=== PATIENT | male | born 1945 | race Caucasian/White ===

== ENCOUNTER 2016-07-24 06:13 | Day surgery (SDC) | payer MEDICARE ==
[~2016-07-24] VITALS: Ht 170.2 cm; Wt 72.0 kg
[~2016-07-24 06:13] MED LIST: AMOX500C2 PO; ASPI-973 PO; ASPI325T32 PO; CELE200C PO; LISI40TA PO; Lactated Ringer's 1,000 ML IV ONE
[2016-07-24] MEDS ORDERED: Dexamethasone 4 mg/mL Inj ONE (06:14)
[2016-07-24] MEDS ORDERED: Propofol 10,000 mCg/mL 20 mL Inj ONE (06:14)
[2016-07-24 06:47] VITALS: BP 138/66; PULSE 60; RESP 14; O2SAT 95
[2016-07-24] MEDS ORDERED: HYDROcodone-APAP 5-325 mg Tablet PO PRN (07:25)
[2016-07-24] MEDS ORDERED: Lidocaine 1%-Epi 1:100,000 20 mL Inj INFILTRATE ONE (08:11)
[2016-07-24] MEDS ORDERED: Lactated Ringer's 500 ML IV PRN (08:15)
[2016-07-24] MEDS ORDERED: Phenylephrine 10,000 mCg/mL Inj IVPUSH PRN (08:15)
[2016-07-24] MEDS ORDERED: Dexamethasone 4 mg/mL Inj IVPUSH PRN (08:15)
[2016-07-24] MEDS ORDERED: Lactated Ringer's 1,000 ML IV SCH (08:15)
[2016-07-24] MEDS ORDERED: EPHEDrine Sulfate 50 mg/mL Inj IVPUSH PRN (08:15)
[2016-07-24] MEDS ORDERED: fentaNYL-PF 50 mCg/mL 2 mL Inj IVPUSH PRN (08:15)
[2016-07-24] MEDS ORDERED: HYDROmorphone 1 mg/mL Inj IVPUSH PRN (08:15)
[2016-07-24] MEDS ORDERED: Atropine 0.4 mg/mL Inj IVPUSH PRN (08:15)
[2016-07-24] MEDS ORDERED: Ondansetron 2 mg/mL 2 mL Inj IVPUSH PRN (08:15)
[2016-07-24] MEDS ORDERED: Labetalol 5 mg/mL 4 mL Inj IV PRN (08:15)
[2016-07-24] MEDS ORDERED: MetoCLOpramide 5 mg/mL 2 mL Inj IVPUSH PRN (08:15)
--- NOTE | 2016-07-24 08:15 | PCM.HPANE ---
Patient Data Date of Service: Jul 24, 2016 Surgeon Admitting Provider: Attending Provider:Wolfgang Man DO Primary Care Physician:Will Miller MD Other Provider:Rivka Delgado Anesthesia Reason for Visit Left Carpal Tunnel Syndrome Ht/WT & BMI Height (Feet): 5 Height (Inches): 7.00 Weight (Kilograms): 72.000 Body Mass Index 24.00 Allergies Coded Allergies: Cephalosporins (Verified Allergy, Unknown, RASH, 07/24/16) RE-ENTERED CODED ALLERGY povidone (Verified Adverse Reaction, Severe, SKIN IRRITATION, 07/21/16) Uncoded Allergies: CEPHALOSPORIN (Allergy, Severe, RASH, 08/13/13) Past Anesthesia History Anesthesia History: Denies:: Anesthesia Reactions, Fam Malignant Hypertherm, Malignant Hyperthermia Diabetes History Hx Diabetes?: No MRSA MRSA: No Medications Blood Thinner: Aspirin Hypertension Medication: Yes (LISINOPRIL) Home Meds Incl Beta Ramona: No Reported Medications Lisinopril 40 Mg [id number] Mg PO BID 30 Days Ref 0 07/21/16 Celecoxib (Celebrex)200 Mg [id number] Mg PO DAILY PRN prn #30 CAPSULE Ref 0 07/21/16 Aspirin 325 Mg [id number] Mg PO DAILY #1 BOTTLE 07/21/16 Aspirin 81 Mg [id number] Mg PO DAILY Ref 0 07/21/16 Amoxicillin 500 Mg Capsule2,000 Mg PO 1 HR PRIOR TO DENTAL Ref 0 09/13/15 Discontinued Reported Medications Mesalamine W/Cleansing Wipes (Mesalamine 4 gm/60 ml Kit)4 Gm/60 Ml Kit4 Gm RC HS Ref 0 09/13/15 PredniSONE-Expunged Drug, Do Not Renew! 5 Mg Tab3 Tab PO DAILYWM THEN DECREASE TO 1-2 DEPENDING ON SYMPTOMS 08/11/13 Omeprazole-Expunged Drug, Do Not Renew! 20 Mg Capsule.dr1-2 Tab PO NEEDED Ref 0 08/11/13 Aspirin-Expunged Drug, Do Not Renew! 325 Mg Tablet1 Tab PO DAILY 08/11/13 Lisinopril-Expunged Drug, Do Not Renew! 40 Mg Tablet1 Tab PO BID 08/11/13 History History of ENT Problems?: Yes HEENT History: Positive for:: Cataracts Hx of Heart Problems?: Yes Cardiovascular History: Positive for:: Hypertension Denies:: AICD Heart Murmur Irregular Heartbeat Pacemaker Rheumatic Fever Thrombophlebitis Valvular Heart Disease Hx of Respiratory Problem?: Yes Respiratory History: Denies:: Oxygen Administration Use of C-PAP Machine (SNORES) Hx Neurologic Problems?: Yes Other Neurological Pertinent: HX OF POLYMYALGIA RHEUMATICA Hx of GI Problems?: Yes Gastrointestinal History: Positive for:: Heartburn Other GI Pertinent History: C/OF INTERMITTANT DIARRHEA S/P LT INGUINAL HERNIA RPR Hx of Problems?: No Male Hx: Denies:: Prostate Problems Scrotal Mass Testicular Surgery Skin History: Positive for:: History Skin Disorders? (S/P EXC BASAL CELL CA ON BACK,MELANOMA EXC RT CHEST WALL) Hx Musculoskeletal Problems?: Yes Musculoskeletal History: Positive for:: Degenerative Joint Joint Replacement (S/P RT MARY W/ REVISIONS X5,LT MARY) Hx of Psycho/Social Problems?: No Hx Surgeries?: Yes (RT MARY W/ REVISIONS X5,L TOTAL HIP, EXC RT CHEST WALL MALIG. MELANOMA,BCC E) Hx Any Other Health Problems?: Yes Other History: Positive for:: Cancer (R CHEST WALL MALIGNANT MELANOMA,EXC BASAL CELL CA ON BACK) Hospitalization Denies:: Endocrine Disease Thyroid Disease History Blood Transfusions: Denies:: Blood Transfusions Hx Diabetes: No Other Pertinent History: S/P RT AXILLARY NODE DISSECTION Hx Alcohol Use: YesAlcoholic Drinks Per Day: 1-2/WEEKHx Substance Use: No Smoking Status: Never Smoker Have You Smoked inLast 12 mo: No Stop/Bang Treated for Sleep Apnea?: No Do You Have a CPAP Machine?: No S-Snoring: Do You Snore Loudly: Yes T-Tired: feel tired, fatigued: No O-Obsered: Observed not breath: No P-Blood Pressure: treated: Yes B- Body Mass Index > 35 kg/m2: No A- Age over 50: Yes N- Neck Large Circumference: No G- Gender Male: Yes CELY Total Score: 4 CELY Risk Assessment: Low Risk, <3 Yes Risk Assessment Category Category 1A: Patient has history of documented sleep apnea, and HAS NOT received any narcotic, sedative or anesthesia administration during this stay. Category 1B: Patient has history of documented sleep apnea, and HAS received any narcotic , sedative or anesthesia administration during this stay Category 2: Patient has SUSPECTED Obstructive Sleep Apnea, and HAS received any narcotic , sedative or anesthesia administration during this stay. Category 3: Patient has SUSPECTED Obstructive Sleep Apnea and HAS NOT received narcotic, sedative or anesthesia administration during this stay. Category 4: Outpatient in Procedural Areas with known sleep apnea or who screen positive for High Risk via the STOP/BANG questionnaire. Exam Exam Vital Signs Vital Signs Date Time Temp Pulse Resp B/P Pulse Ox O2 Delivery O2 Flow Rate FiO2 07/24/16 06:47 36.3 60 14 138/66 95 Room Air General Appearance: Oriented X3, Cooperative, No Acute Distress HEENT/AIRWAY: MP 1 Lungs: Clear to Auscultation, Normal Air Movement Heart: Exam Unremarkable, Normal S1, Normal S2 Meds/Labs/Diagnostics Admission Meds Current Medications Lactated Ringer's (Lr) 1,000 ml @ 120 mls/hr [id number] ONCE IV Last administered on 07/24/16t 07:08; Start 07/24/16 at 05:00; Stop 07/24/16 at 13:19 Plan Impression Patient chart reviewed, patient interviewed and anesthestic plan with risks, benefits, and alternatives discussed, and informed consent obtained. NPO Status: 07/24/16 WATER 0400 ASA Physical Status: ASA2 Mod Systemic Disease Anesthetic Plan: MAC, Regional Block Bene/Risks/Altern/Consents: Yes HP Complete Prior to Induction: Yes Vazquez Hansen DO Jul 24, 2016 08:15
--- NOTE | 2016-07-24 08:49 | PCM.ANEP1 ---
Post Anesthesia Phase 1 PACU Phase 1 Assessment Date of Service: Jul 24, 2016 Vital Signs Vital Signs Date Time Temp Pulse Resp B/P Pulse Ox O2 Delivery O2 Flow Rate FiO2 07/24/16 06:47 36.3 60 14 138/66 95 Room Air Anesthetic Administered: MAC, Regional Block (SAMM) Level of Alertness: Awake, talking FLOREZ's with Equal Strength: Yes Pain: No Nausea or Vomiting: No Oxygen Delivery: Room Air Lungs: Clear to Auscultation, Normal Air Movement Dermatome Level: Full Sensation (Anesthetic limb c/w Samm block) Vazquez Hansen DO Jul 24, 2016 08:49
[2016-07-24 09:30] VITALS: BP 133/64; PULSE 63; RESP 14; O2SAT 96
--- NOTE | 2016-07-24 10:01 | OP ---
[address] [address] OPERATIVE REPORT PATIENT: ANITA MC : 1945 MR#: [id number] ADMIT: 07/24/2016 JOB ID: [id number] DATE OF SURGERY: 07/24/2016 PREOPERATIVE DIAGNOSIS(ES): Left carpal tunnel syndrome. POSTOPERATIVE DIAGNOSIS(ES): Left carpal tunnel syndrome. PROCEDURE: Left open carpal tunnel release. SURGEON: Wolfgang Man DO ANESTHESIA: [place] block. HISTORY: The patient is a pleasant, 71-year-old male, with a longstanding history of bilateral hand pain and paresthesias. He underwent a right open carpal tunnel release several months ago, and was undergoing conservative treatment for his left hand. His symptoms progressively worsened despite utilization of nighttime braces, and we discussed proceeding with a left open carpal tunnel release. He understood the risks include, but not limited to, neurovascular injury, tendon injury, infection, failure to resolve the patient's preoperative symptoms, stiffness, persistent pain which may require further intervention. The patient had all questions answered. Consent was signed and placed in the chart. PROCEDURE IN DETAIL: The patient was brought to the operating suite and placed supine on the operative table. Surgical time-out was performed. Everyone in the room was in agreement. After appropriate anesthesia was obtained, the left hand was then prepped and draped in a sterile fashion. A 2 cm longitudinal incision was made in line with the radial aspect of ring finger and the ulnar aspect of the palmaris longus. The incision was kept distal to the wrist crease and proximal to Caldera's cardinal line. Subcutaneous tissues were dissected. Bipolar electrocautery utilized to maintain hemostasis throughout the procedure. The palmar fascia was first identified and incised longitudinally in line with the skin incision, followed by exposure of the underlying transverse carpal ligament. The transverse carpal ligament was then released in its entirety to include the distal extent of the antebrachial fascia. Copious irrigation was then performed, followed by closure of skin with 5-0 nylon in simple interrupted fashion. The patient was then placed into a bulky soft dressing. ESTIMATED BLOOD LOSS: Less than 1 cc. COMPLICATIONS: None. DISPOSITION: The patient tolerated the procedure well. Anesthesia was reversed. The patient was transferred back to the PACU for recovery. POSTOPERATIVE PLAN: The patient will follow up in the office in two weeks. We will remove the patient's sutures at that time and have him start working on range of motion and scar mobilization.
[2016-07-24 10:29] VITALS: BP 117/67; PULSE 74; RESP 14; O2SAT 96
--- NOTE | 2016-07-24 10:35 | PCM.ANEP2 ---
Post Anesthesia Evaluation ASA/CMS Post Anesthesia Date of Service: Jul 24, 2016 VS in Patient's Normal Range?: Yes Resp Stable; Airway Patent?: Yes CV Function & Hydration Stable: Yes Mental Status Recovered?: Yes Pain control Satisfactory?: Yes N/V Control Satisfactory?: Yes Vazquez Hansen DO Jul 24, 2016 10:35
== END 2016-07-24 23:59 | disposition home or self-care (01) ==
LOC: SAS 06:13
PROVIDERS: ATTEND Orthopaedic Surgery
DX: G56.02 Carpal tunnel syndrome, left upper limb (principal); M35.3 Polymyalgia rheumatica; Z79.82 Long term (current) use of aspirin; Z79.52 Long term (current) use of systemic steroids; Z96.641 Presence of right artificial hip joint
CPT/HCPCS: 64721; J1100; J2250; J7120